=== PATIENT | male | born 1980 | race Caucasian/White ===

== ENCOUNTER 2025-06-28 09:02 | Emergency (ER) | payer OTHER, SELFPAY ==
--- OUTSIDE RECORDS SUMMARY | 2024-02-07 08:30 | XMS_ITS ---
Author Organization 1 OF Giovana newell DPM [facility] Address [address] [facility] [address] [place] [address] Care Team Providers Care Miniature Set Constructor Name Role Phone tSeffany Kellogg Primary Care Provider Jason Monahan Unavailable [phone] REASON FOR VISIT RT hallux Exostectomy Encounters Encounter Location Date Provider Diagnosis 1 OF Giovana Spivey DPM [facility] [address] [facility] [address] [place] [address] 02/07/2024 Jason Martinez Plan Of Treatment No Information Progress Notes * Austen SALINAS MDOB:[birth year] (45 yo M)Acc No.[id number]:02/07/2024 Patient: Austen DODGE Provider: Halian Martinez DPM :1980 A ge:43 Y S ex:Male Date:02/07/2024 Address:[address] [facility] Pcp:BETY Abarca * Images: * Electronic signature of Jason Martinez DPM on 06/28/2025 at 10:50 AM CDT Sign off status: Pending * Provider: Halina Martinez DPM Date: 0 02/07/2024 Generated for Souravi ng/Fadavidg/eTransmitting on: 0 06/28/2025 10:50 AM CDT
--- OUTSIDE RECORDS SUMMARY | 2024-02-13 09:10 | XMS_ITS ---
Author Organization 1 JOANIE newell DPM [facility] Address [address] [address] [place] [address] Care Team Providers Care Buyers' Agent Name Role Phone Steffany Kellogg Primary Care Provider Jason Monahan Unavailable [phone] REASON FOR VISIT S/P RT hallux exostectomy Encounters Encounter Location Date Provider Diagnosis 3 [facility] C. Markos Spivey DPM [address] [address] 02/13/2024 Jason Martinez Plan Of Treatment No Information Progress Notes * Austen SALINAS MDOB:[birth year] (45 yo M)Acc No.[id number]:02/13/2024 Progress Note Patient: Austen DODGE Provider: Halina Martinez DPM :1980 A ge:43 Y S ex:Male Date:02/13/2024 Address:[address] [id number] Pcp:BETY Abarca Subjective: * Chief Complaints: * 1 . S/P RT hallux exostectomy. * Medical History: Objective: * Vitals: Assessment: Plan: * Treatment: * Images: * Electronic signature of Jason Martinez DPM on 06/28/2025 at 10:50 AM CDT Sign off status: Pending * Provider: Halina Martinez DPM Date: 0 02/13/2024 Generated for Andrew devlin/Mya/eTransmitting on: 0 06/28/2025 10:50 AM CDT
--- NOTE | ~2025-06-28 | XR_ITS ---
EXAM/ PROCEDURE: XR hand LT min 3V - 06/28/2025 10:18 CDT HISTORY: 45 years old Male with laceration COMPARISON: None available TECHNIQUE: Three view(s) FINDINGS/ IMPRESSION: There are no fractures or dislocations.Joint spaces are within normal limits. Reviewed, dictated and finalized at location N.
[2025-06-28 09:11] VITALS: BP 160/74; PULSE 92; RESP 20; TEMP 36.4; O2SAT 100
--- NOTE | 2025-06-28 09:50 | ED.GENADULT ---
HPI - General Adult General Chief complaint: Wound/Laceration Stated complaint: hand laceration Time Seen by Provider: 06/28/25 09:15 History of Present Illness HPI narrative: Austen Gifford is a 45-year-old male who presents today with complaints of having a laceration to his left thumb. 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 They were able to control the bleeding at the site with some pressure dressings he does not want his last tetanus shot was. He states that his pain is actually gone at this time. Related Data Allergies Allergy/AdvReac Type Severity Reaction Status Date / Time No Known Allergies Allergy Verified 06/28/25 09:10 Review of Systems Review of Systems: All systems reviewed & are unremarkable except as noted in HPI and below Exam Narrative: GENERAL: Well-appearing, well-nourished, and in no acute distress. HEAD: Normocephalic, atraumatic. EYES: PERRLA and EOMI. ENT: Nares clear, no rhinorrhea or epistaxis. Mucous membranes moist. Oropharynx without tonsillar hypertrophy exudate or other lesions. NECK: Supple. No adenopathy or masses. No carotid bruits or JVD CHEST: Clear to auscultation. No respiratory distress. No wheezes rales or rhonchi HEART: Regular rate and rhythm. No murmur heard. Normal peripheral pulses. ABDOMEN: Soft, nontender, nondistended, normal active bowel sounds. EXTREMITIES: Normal range of motion. No edema. SKIN: Linear laceration to the 5th metacarpal about 2 cm in length NEURO: No focal deficits. Alert and oriented x3. PSYCH: Normal mood and affect. Course Vital Signs Vital signs: Vital Signs Temperature 36.4 C 06/28/25 09:11 Pulse Rate 92 06/28/25 09:11 Respiratory Rate 20 06/28/25 09:11 Blood Pressure 160/74 H 06/28/25 09:11 Pulse Oximetry 100 06/28/25 09:11 Oxygen Delivery Room Air 06/28/25 09:11 Temperature 36.4 C 06/28/25 09:11 Pulse Rate 92 06/28/25 09:11 Respiratory Rate 20 06/28/25 09:11 Blood Pressure 160/74 H 06/28/25 09:11 Pulse Oximetry 100 06/28/25 09:11 Oxygen Delivery Room Air 06/28/25 09:11 Procedures Laceration Laceration 1: Date: 06/28/25 Site: hand Side (If applicable): left Size (cm): 1.5 Description: linear Depth: simple, single layer Local Anesthetic: lidocaine 2% (with epi) Amount of anesthesia used (mL): 4 Pre-repair: wound explored, irrigated and irrigated extensively ====== Skin Level ====== Skin layer closed with: nylon Size (cm): 4-0 Number of sutures: 3 Technique: simple, interrupted ====== Subcutaneous Layer ====== ====== Muscle Layer ====== ====== Tendon Layer ====== Dressing: Bandage applied over Medical Decision Making MDM Narrative Medical decision making narrative: 45-year-old who presents with a laceration to his 5th metacarpal on the left hand that will likely require sutures will also update Tdap he denies anything for pain at this time. Will provide him with a dose of Tylenol home for pain later. about 1.5 cm linear laceration closed with 3 size 4.0 sutures. wound prepped with Betadine and then anesthetized with lido with epi wound irrigated with sterile water thoroughly and prepped again with Betadine and closed with 3 sutures wound covered with bandage Provided suture care instructions, return precautions provided Patient agrees with plan and all questions answered. Medical Records Medical records reviewed: Yes I reviewed the external patient's medical records. Vital Signs Vital Signs: Vital Signs Temperature 36.4 C 06/28/25 09:11 Pulse Rate 92 06/28/25 09:11 Respiratory Rate 06/28/25 09:11 Blood Pressure 160/74 H 06/28/25 09:11 Pulse Oximetry 100 06/28/25 09:11 Oxygen Delivery Room Air 06/28/25 09:11 Temperature 36.4 C 06/28/25 09:11 Pulse Rate 92 06/28/25 09:11 Respiratory Rate 20 06/28/25 09:11 Blood Pressure 160/74 H 06/28/25 09:11 Pulse Oximetry 100 06/28/25 09:11 Oxygen Delivery Room Air 06/28/25 09:11 Vitals reviewed by me Discharge Plan Discharge Clinical Impression: Laceration Patient Disposition: Home Condition: Stable Instructions: Antibiotic Form, Care For Your Stitches (ED) Additional Instructions: Continue to keep your sutures cleansed and covered while healing THey do need to be removed in about 10 days Follow up with your PCP in 1 week to ensure you are improving. If you should develop any signs or symptoms of infection return to the ER. Patient Language: Nepali Follow-up/Referrals: PHYSICIAN,SCIENTIFIC RESEARCH ASSOCIATE [Primary Care Provider, Internal Medicine] Stand Alone Forms: Work/School Release IP Time of Disposition: 12:05
[2025-06-28] MEDS: ACETAMINOPHEN 500 MG TABLET 1000 MG PO (10:37)
[2025-06-28] MEDS: TETANUS,DIPHTHERIA,AC PERTUSSIS ADULT (0.5 ML) BOOSTRIX IM (10:38)
--- OUTSIDE RECORDS SUMMARY | 2025-06-28 10:50 | XMS_ITS | Patient Health Record ---
Author Organization 1 OF Giovana newell [facility] Address [address] [place] [address] Care Team Providers Care Business Excellence Manager Name Role Phone Steffany Kellogg Primary Care Provider Jason Monahan Unavailable [phone] Allergies No Known Allergies Reason For Referral No Information Medications Medication SIG (Take, Route, Frequency, Duration) Notes Start Date End Date Status HYDROcodone-Acetaminophen 5-325 MG 1-2 tablets Orally every 6 hrs PRN pain after surgery 12/06/2023 Not-Taking Meloxicam 15 MG 1 tablet Orally once a day; Duration: 30 days 10/31/2023 Not-Takin g hydrOXYzine HCl Acti ve PARoxetine HCl 20 MG 1 tablet in the mor lior Orally Once a day Active HYDROcodone-Acetaminophen 5-325 MG 1-2 tablets as needed Orally every 6 hrs PRN pain after surgery; Duration: 7 days 12/06/2023 Not-Taking Problems Problem Type SNOMED Code ICD Code Onset Dates Problem Status W/U Status Risk Notes 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 Encounters Encounter Location Date Provider Diagnosis 1 OF Giovana Spivey [facility] [address] [place] [address] 09/02/2024 Jason Martinez Plan Of Treatment No Information Insurance Providers Payer Name Payer Address Payer Phone Subscriber Number Group Number Insured Name Patient Relationship to Insured Coverage Start Date Coverage End Date [employer] [address] [place] [address] [phone] [id number] Austen Marie Self - patient is the insured Medical (General) History Medical History History ICD Code anxiety, depression
--- OUTSIDE RECORDS SUMMARY | 2025-06-28 10:50 | XMS_ITS | Clinical Summary ---
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
--- OUTSIDE RECORDS SUMMARY | 2025-06-28 10:50 | XMS_ITS | Clinical Summary ---
Author Organization [facility] Address [address] [place] [address] Care Team Providers Care Pelletizer Name Role Phone Unavailable Primary Care Provider Unavailabl e Social History Tobacco Use Types Packs/Day Years Used Date Smoking Tobacco: Never Assessed Sex and Gender Information Value Date Recorded Sex Assigned at Not on file Legal Sex Male 8:10 PM CDT Gender Identity Not on file Sexual Orientation Not on file Plan of Treatment Health Maintenance Due Date Last Done Comments Annual Physical 1985 Hepatitis C 02/17/2000 DTaP, Tdap and Td Vaccines ( 1 - Tdap) 2001 Hepatitis B Vaccines (1 of 3 - 19+ 3-dose series) 2001 HPV Vaccines (1 - 3-dose SCD M series) 2009 COVID-19 Vaccine ( - 2023-2 5 season) 2025 Meningococcal B Vaccine Aged Out No l onger eligible based on patient's age to complete this topic Meningococcal Vaccine Aged Out No barron papa eligible based on patient's age to complete this topic Pneumococcal Vaccine: Pediat rics (0 to 5 Years) and At-Risk Patients (6 to 49 Years) Aged Out No longer eligible b ased on patient's age to complete this topic RSV Immunizations Under 20 Months Aged Out No longer eligible based on patient's age to complete this topic
--- OUTSIDE RECORDS SUMMARY | 2025-06-28 10:50 | XMS_ITS | Encounter Summary ---
Author Organization [facility] Address 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 [address] [place] [address] PCP - General 10/26/03 documented as of this encounter
--- OUTSIDE RECORDS SUMMARY | 2025-06-28 10:51 | XMS_ITS | Clinical Summary ---
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 Gender Identity Not on file Sexual Orientation Not on file Plan of Treatment Health Maintenance Due Date Last Done Comments Hepatitis C Virus (HCV) Screening 1982 Hepatitis B Immunization (1 of 3 - 19+ 3-dose series) 2001 Human Papillomavirus (HPV) Immunization (1 - 3-dose SCDM series) 2009 SARS-COV-2 Immunization ( - 2023- season) 2024 Influenza Immunization (#1) 2025 07/29/2018 Respiratory Syncytial Virus (RSV) Immunization (Adult) (1 - 1-dose 75+ series) 2057 DTaP/Tdap/Td Immunization Discontinued 2017, 03/31/1996, 05/27/1987, Additional history exists TdaP Immunization Completed 07/29/2018 Meningococcal Immunization (ACWY) Aged Out No longer eligible based on patient's age to complete this topic Pneumococcal Immunization Combined Aged Out No longer eligible based on patient's age to complete this topic Rotavirus Immunization Aged Out No lo nger eligible based on patient's age to complete this topic
== END 2025-06-28 12:15 | disposition home or self-care (01) ==
PROVIDERS: Emergency Provider Nurse Practitioner Family
DX: S61.412A Laceration without foreign body of left hand, initial encounter (principal); W45.8XXA Other foreign body or object entering through skin, initial encounter; Y99.0 Civilian activity done for income or pay; Z23 Encounter for immunization
CPT/HCPCS: 12001; 73130; 90471; 90715; 99283; A9270